=== PATIENT | male | born 1975 | race Caucasian/White ===

== ENCOUNTER → 2017-02-17 | Outpatient (CLI) | payer BC ==
--- NOTE | 2017-02-17 19:52 | PN ---
Brodie is coming in for a followup regarding his obstructive sleep apnea. I have not seen this patient for almost 2-1/2 to 3 years. He was diagnosed having obstructive sleep apnea back in 2013 and his disease was severe, with an apnea-hypopnea index of 68. Currently he is on CPAP at a pressure of 9 cm of water. He remains compliant. He continues to see good clinical response from CPAP therapy. He is averaging more than 6 hours of sleep per night and he is waking up refreshed and alert during the day. He is using a Quattro air full-face mask. He has gained around 18 pounds. He does not snore while on CPAP therapy and he does not have any other complaints. His health otherwise has been essentially the same; the only significant finding over the past year is his 18-pound weight gain. BP is 123/86, pulse 66, respiration 16, temperature 98.2, saturation 97% on room air. Neck size 17-3/4. Height is 6 feet 0 inches. Weight is 258. GENERAL APPEARANCE: Obese, calm, comfortable. HEENT: Short neck. Mallampati class IV. LUNGS: Clear to auscultation. HEART: Sounds are regular rate and rhythm. Normal S1, S2. ABDOMEN: Soft, nontender. No organomegaly. EXTREMITIES: No clubbing. No cyanosis or clubbing. IMPRESSION: 1. Severe obstructive sleep apnea, apnea-hypopnea index of 68, currently on CPAP at a pressure of 9. 2. Chronic hypersomnia, improved. [place] score is down to 5. 3. Obesity with interval weight gain. Current BMI is 34.9. PLAN: 1. The patient wanted to drop [employer], and I sent a prescription to [facility] for his supplies to be renewed. I ordered a Quattro Air large-sized full-face mask in addition to tubing, ( ) tubing and supplies. 2. Encourage weight loss. 3. Compliancy with CPAP is excellent. Continue the treatment and see me back in a few years' time or when needed.
== END | disposition home or self-care (01) ==
LOC: SLEEP 16:25
PROVIDERS: ATTEND Internal Medicine Critical Care Medicine
DX: G47.33 Obstructive sleep apnea (adult) (pediatric) (principal); G47.13 Recurrent hypersomnia; E66.9 Obesity, unspecified; Z68.34 Body mass index [BMI] 34.0-34.9, adult

== ENCOUNTER → 2017-08-04 | Outpatient (CLI) | payer BC ==
[2017-08-04 08:16] LABS: Basophils # (A) 0.1 k/uL (0-0.2); Basophils % (A) 1 %; CH 33.8; Eosinophils # (A) 0.2 k/uL (0-0.7); Eosinophils % (A) 3 %; HCT 45.6 % (39.0-53.0); HDW 3.13; HGB 16.2 gm/dL (13.0-17.5); Luc # (Auto) 0.17; Luc % (Auto) 3; Lymphocytes # (A) 2.1 k/uL (1.0-4.8); Lymphocytes % (A) 35 %; MCH 32.6 pg (25.0-35.0); MCHC 35.5 g/dL (31.0-37.0); MCV 91.9 fL (80.0-100.0); Mean Platelet Volume 6.6; Monocytes # (A) 0.4 k/uL (0-1.0); Monocytes % (A) 7 %; Neutrophils # (A) 3.2 k/uL (1.3-7.7); Neutrophils % (A) 52 %; RBC 4.96 m/uL (4.30-5.90); RDW 14.5 % (11.5-15.5); WBC 6.2 k/uL (3.8-10.6); WBC (Perox) 6.05
[2017-08-04 08:46] LABS: ALT 76 U/L (21-72); AST 52 U/L (17-59); Alkaline Phosphatase 80 U/L (38-126); Anion Gap 9 mmol/L; Blood Urea Nitrogen 12 mg/dL (9-20); Calcium 9.2 mg/dL (8.4-10.2); Carbon Dioxide 29 mmol/L (22-30); Chloride 101 mmol/L (98-107); Cholesterol 211 mg/dL (<200); Glucose 94 mg/dL (74-99); HDL Cholesterol 37 mg/dL (40-60); Non-African American GFR(MDRD) >60 (>60 ml/min/1.73 sqM); Potassium 4.4 mmol/L (3.5-5.1); Sodium 139 mmol/L (137-145); Total Bilirubin 1.4 mg/dL (0.2-1.3); Total Protein 7.8 g/dL (6.3-8.2)
== END | disposition home or self-care (01) ==
LOC: LABWHC1 07:30
PROVIDERS: ATTEND Internal Medicine
DX: Z00.00 Encounter for general adult medical examination without abnormal findings (principal); E78.5 Hyperlipidemia, unspecified; E87.8 Other disorders of electrolyte and fluid balance, not elsewhere classified; E55.9 Vitamin D deficiency, unspecified; I49.9 Cardiac arrhythmia, unspecified; J32.9 Chronic sinusitis, unspecified
CPT/HCPCS: 36415; 80053; 80061; 82306; 85025

== ENCOUNTER → 2017-12-12 | Outpatient (CLI) | payer BC ==
[2017-12-12 10:15] LABS: Albumin 4.5 g/dL (3.5-5.0); Bilirubin, Delta 0.2 mg/dL (0.0-0.2); Bilirubin,Unconjugated 0.9 mg/dL (0.0-1.1); Total Bilirubin 1.1 mg/dL (0.2-1.3); Total Protein 7.5 g/dL (6.3-8.2)
== END | disposition home or self-care (01) ==
LOC: LABWHC1 09:29
PROVIDERS: ATTEND Internal Medicine
DX: K76.9 Liver disease, unspecified (principal); R74.8 Abnormal levels of other serum enzymes
CPT/HCPCS: 36415; 80076

== ENCOUNTER → 2017-12-17 | Outpatient (CLI) | payer BC ==
[2017-12-17 07:55] LABS: Basophils # (A) 0.1 k/uL (0-0.2); Basophils % (A) 1 %; Eosinophils # (A) 0.2 k/uL (0-0.7); Eosinophils % (A) 4 %; HCT 44.8 % (39.0-53.0); HGB 15.9 gm/dL (13.0-17.5); Lymphocytes % (A) 32 %; MCHC 35.4 g/dL (31.0-37.0); MCV 90.3 fL (80.0-100.0); Mean Platelet Volume 6.4; Monocytes # (A) 0.3 k/uL (0-1.0); Monocytes % (A) 5 %; Neutrophils # (A) 3.5 k/uL (1.3-7.7); Neutrophils % (A) 55 %; Platelet Count 217 k/uL (150-450); RBC 4.97 m/uL (4.30-5.90); RDW 13.4 % (11.5-15.5); WBC 6.3 k/uL (3.8-10.6)
[2017-12-17 08:06] LABS: Anion Gap 11 mmol/L; Blood Urea Nitrogen 12 mg/dL (9-20); Calcium 9.4 mg/dL (8.4-10.2); Carbon Dioxide 28 mmol/L (22-30); Chloride 103 mmol/L (98-107); Cholesterol 220 mg/dL (<200); Glucose 100 mg/dL (74-99); HDL Cholesterol 41 mg/dL (40-60); LDL Cholesterol,Calculated 135 mg/dL (0-99); Potassium 4.3 mmol/L (3.5-5.1); Sodium 142 mmol/L (137-145); Triglycerides 219 mg/dL (<150)
[2017-12-17 09:41] LABS: Erythrocyte Sedimentation Rate 3 mm/hr (0-15)
[2017-12-17 17:06] LABS: Hepatitis A Antibody IgM Non-Reactive (Non-Reactive); Hepatitis B Core IgM Non-Reactive (Non-Reactive)
[2017-12-17 22:27] LABS: DNA Double-Stranded NEGATIVE (NEGATIVE)
== END | disposition home or self-care (01) ==
LOC: LABWHC1 07:22
PROVIDERS: ATTEND Internal Medicine
DX: R16.2 Hepatomegaly with splenomegaly, not elsewhere classified (principal); R74.8 Abnormal levels of other serum enzymes; K75.9 Inflammatory liver disease, unspecified
CPT/HCPCS: 36415; 80048; 80061; 80074; 85025; 85652; 86038; 86225

== ENCOUNTER 2018-01-07 15:59 | Outpatient (CLI) | payer BC ==
[2018-01-07 17:05] LABS: Basophils % (A) 1 %; Eosinophils # (A) 0.1 k/uL (0-0.7); Eosinophils % (A) 1 %; HCT 44.8 % (39.0-53.0); Lymphocytes # (A) 1.9 k/uL (1.0-4.8); Lymphocytes % (A) 44 %; MCH 31.1 pg (25.0-35.0); MCHC 33.4 g/dL (31.0-37.0); MCV 93.1 fL (80.0-100.0); Mean Platelet Volume 6.4; Monocytes # (A) 0.4 k/uL (0-1.0); Monocytes % (A) 10 %; Neutrophils # (A) 1.7 k/uL (1.3-7.7); Neutrophils % (A) 40 %; Platelet Count 170 k/uL (150-450); RBC 4.81 m/uL (4.30-5.90); RDW 13.2 % (11.5-15.5); WBC 4.3 k/uL (3.8-10.6)
== END 2018-01-07 16:35 | disposition home or self-care (01) ==
LOC: LABWHC1 15:59 → PEDOP 16:35
PROVIDERS: ATTEND Internal Medicine
DX: R50.9 Fever, unspecified (principal); B34.9 Viral infection, unspecified
CPT/HCPCS: 36415; 85025; 87502; 99212

== ENCOUNTER → 2018-08-05 | Outpatient (CLI) | payer BC ==
[2018-08-05 07:50] LABS: Basophils % (A) 1 %; Eosinophils # (A) 0.2 k/uL (0-0.7); Eosinophils % (A) 4 %; HCT 45.2 % (39.0-53.0); HGB 15.6 gm/dL (13.0-17.5); Lymphocytes # (A) 1.8 k/uL (1.0-4.8); Lymphocytes % (A) 34 %; MCH 31.8 pg (25.0-35.0); MCHC 34.5 g/dL (31.0-37.0); MCV 92.1 fL (80.0-100.0); Mean Platelet Volume 6.1; Monocytes # (A) 0.3 k/uL (0-1.0); Monocytes % (A) 6 %; Neutrophils # (A) 2.8 k/uL (1.3-7.7); Neutrophils % (A) 54 %; Platelet Count 211 k/uL (150-450); RBC 4.91 m/uL (4.30-5.90); RDW 13.7 % (11.5-15.5); WBC 5.2 k/uL (3.8-10.6)
[2018-08-05 09:37] LABS: ALT 68 U/L (21-72); AST 48 U/L (17-59); Albumin 4.4 g/dL (3.5-5.0); Alkaline Phosphatase 77 U/L (38-126); Anion Gap 10 mmol/L; Blood Urea Nitrogen 11 mg/dL (9-20); Calcium 9.2 mg/dL (8.4-10.2); Carbon Dioxide 25 mmol/L (22-30); Chloride 106 mmol/L (98-107); Creatine Kinase 451 U/L (55-170); GGT 75 U/L (15-73); Glucose 104 mg/dL (74-99); Potassium 4.2 mmol/L (3.5-5.1); Sodium 141 mmol/L (137-145); Total Bilirubin 1.4 mg/dL (0.2-1.3); Total Protein 7.6 g/dL (6.3-8.2)
[2018-08-05 09:47] LABS: Erythrocyte Sedimentation Rate 6 mm/hr (0-15)
[2018-08-05 09:55] LABS: C Reactive Protein <5.0 mg/L (<10.0)
[2018-08-05 11:09] LABS: Cholesterol 206 mg/dL (<200); HDL Cholesterol 31 mg/dL (40-60); LDL Cholesterol,Calculated 144 mg/dL (0-99); Triglycerides 153 mg/dL (<150)
== END | disposition home or self-care (01) ==
LOC: LABWHC1 07:25
PROVIDERS: ATTEND Internal Medicine
DX: E78.5 Hyperlipidemia, unspecified (principal); K75.9 Inflammatory liver disease, unspecified; I10 Essential (primary) hypertension; E55.9 Vitamin D deficiency, unspecified; K75.81 Nonalcoholic steatohepatitis (NASH)
CPT/HCPCS: 36415; 80053; 80061; 82306; 82550; 82977; 84443; 85025; 85652; 86140

== ENCOUNTER → 2018-08-17 | Outpatient (CLI) | payer BC ==
--- NOTE | 2018-08-17 19:32 | SFUN ---
SLEEP CENTER FOLLOW UP NOTE DATE OF SERVICE: 08/17/2018. HISTORY: Brodie is a 43-year-old male patient with known history of obstructive sleep apnea. He is coming in for an annual check. His last evaluation was in January of 2017. The patient is still on a CPAP pressure of 9 cm of water. On today's evaluation he is wondering whether he can increase the pressure slightly as he has been told by his that he is snoring at nighttime. He is averaging around 7 hours of CPAP use per night. He has a Resmet S9 series and his treatment has been essentially successful. He is waking up refreshed and alert during the day. Weight has been stable. His current Ashburn score is at 3. His baseline apnea-hypopnea index was 68 at the time of initial diagnosis. He has no specific complaints otherwise for now, and the patient has been been well treated with the exception of snoring. No nighttime shortness of breath. No palpitations. No heartburn. No hypersomnia or sleepiness during the day and the patient is to successfully treated. Ashburn score is a 3. PHYSICAL EXAMINATION: BP is 128/83, pulse 61, respirations 16, saturation 94% on room air. Weight is 259. GENERAL APPEARANCE: Calm comfortable. HEAD: Atraumatic, normocephalic. NECK: Supple. There is no JVD. No goiter or neck mass. LUNGS: Clear to auscultation. HEART: Sounds regular rhythm. Normal S1, S2. No S3, S4. No murmurs. ABDOMEN: Soft, nontender. EXTREMITIES: No edema. No cyanosis or clubbing. NEUROLOGIC: Alert and oriented x3. No focal neurological deficits. IMPRESSION: 1. Severe obstructive sleep apnea. Apnea hypopnea index of 68, currently on CPAP pressure of 9. 2. Hypersomnia, recovered. Ashburn score is 3. 3. Obesity with a stable body weight. 4. Snoring. PLAN: 1. Increase the CPAP pressure up to 10. This is an arbitrary change because of his snoring. 2. I fitted this patient to an AirFit medium size mask and he preferred this mask over the Quattro he has used in the past. 3. Encouraged weight loss. 4. See me back in a year's time, earlier if needed. His treatment is successful. Arbitrary CPAP pressure increased to eliminate his snoring. MMODL / IJN: [id number] /
== END | disposition home or self-care (01) ==
LOC: SLEEP 16:42
PROVIDERS: ATTEND Internal Medicine Critical Care Medicine
DX: G47.33 Obstructive sleep apnea (adult) (pediatric) (principal); E66.9 Obesity, unspecified; Z99.89 Dependence on other enabling machines and devices

== ENCOUNTER → 2018-12-14 | Outpatient (CLI) | payer BC ==
[2018-12-14 11:15] LABS: LDL Cholesterol,Calculated 125.4 mg/dL (0.0-131.0); VLDL Calculation 26.6 mg/dL (5.00-40.00)
== END | disposition home or self-care (01) ==
LOC: LABWHC1 06:52
PROVIDERS: ATTEND Internal Medicine
DX: E78.5 Hyperlipidemia, unspecified (principal); R74.8 Abnormal levels of other serum enzymes
CPT/HCPCS: 36415; 80061; 82550; 84450; 84460

== ENCOUNTER → 2019-01-25 | Outpatient (CLI) | payer BC ==
--- NOTE | 2019-01-25 18:35 | PN ---
PROGRESS NOTE Brodie is a 43-year-old male patient who is coming in for a compliancy check as the patient has obtained a new CPAP unit. The patient has obstructive sleep apnea and his disease was severe with an AHI of 68 at baseline. The patient was using an older generation ResMed S9 series. Currently the patient has been upgraded to a ResMed air sense unit which is also set, however set at a pressure of 10 cm of water. On today's evaluation, he is very happy with the treatment. His snoring is completely eliminated. He is waking up much more refreshed and alert and likes the new machine knowing that his clinical response improved considerably. He is not having any major sleepiness during the day. I checked the compliance data. The patient has been averaging around 6.7 hours of CPAP use per night. His use for more than 4 hours is 29 out of 30. Leak is 12 L/minute. AHI is down to 2.6, and he is using an AirFit F20 large size full-face mask. His weight was 259, is currently down to 251. He has absolutely no complaints. PHYSICAL EXAMINATION: BP is 124/75. Pulse 72, respirations 16, temperature 98.7, saturation 94% on room air. Weight is 251. Belmond score of 5. General appearance is calm and comfortable. Head is atraumatic, normocephalic. NECK: Supple. There is no JVD. No goiter or neck masses. LUNGS: Clear to auscultation. HEART: Sounds regular rate and rhythm. Normal S1, S2. No S3. No murmurs. ABDOMEN: Soft, nontender. No organomegaly. EXTREMITIES: No edema. No cyanosis or clubbing. Neurologically: He is alert and oriented x3. There is no focal neurological deficits. IMPRESSION: 1. Severe obstructive sleep apnea with an AHI of 68, currently on CPAP with a pressure of 10. 2. Hypersomnia, recovered. 3. Obesity with interval weight loss. 4. Snoring recovered. PLAN: 1. Continue CPAP with a pressure of 10. 2. Compliance data was checked. The patient is using his CPAP without any major difficulty. Treatment is successful. Compliance has been demonstrated and insurance guidelines have been met. We will continue treatment. Keep an AirFit large size full-face mask. 3. We will follow. MMODL / IJN: [id number] /
== END ==
LOC: SLEEP 15:52
PROVIDERS: ATTEND Internal Medicine Critical Care Medicine
DX: G47.33 Obstructive sleep apnea (adult) (pediatric) (principal); E66.9 Obesity, unspecified; Z99.89 Dependence on other enabling machines and devices

== ENCOUNTER → 2019-04-28 | Outpatient (CLI) | payer BC ==
--- NOTE | 2019-04-28 11:25 | CT ---
CT CHEST FOR PULMONARY EMBOLISM. EXAMINATION TYPE: CT angio chest DATE OF EXAM: 04/28/2019 INDICATION: Aortic aneurysm CT DLP: 611.0 mGycm, Automated exposure control for dose reduction was used. CONTRAST: Patient injected with 100 mL of Isovue 370. COMPARISON: 07/21/2014 TECHNIQUE: CT of the chest is performed on a spiral scan at 2 mm thick sections. Study is performed with intravenous contrast timed for evaluation for pulmonary embolism. This will limit additional po rtions of the evaluation. 3-D MIP images reconstructed by the technologist are reviewed on the compu ter in the coronal and sagittal planes. FINDINGS: No persistent filling defects are evident to suggest an acute pulmonary embolism. No mediastinal or hilar adenopathy enlarged by CT criteria is evident. The ascending aorta diameter at the level of the main pulmonary artery is 4.7 cm. The main pulmonary artery diameter at the bifur cation is 3.2 cm. Coronary artery calcification is noted. No right heart strain is noted. Lung windows are clear. Limited CT section through the upper abdomen are unremarkable. IMPRESSIONS: 1. Ascending thoracic aortic aneurysm measuring 4.7 cm. This is increased from 4.0 cm 07/21/2014.
== END | disposition home or self-care (01) ==
LOC: RADCTMAIN 06:50
PROVIDERS: ATTEND Internal Medicine Clinical Cardiac Electrophysiology
DX: I71.2 Thoracic aortic aneurysm, without rupture (principal)
CPT/HCPCS: 71275; Q9967

== ENCOUNTER → 2019-12-03 | Outpatient (CLI) | payer BC ==
[2019-12-03 10:00] LABS: Basophils # (A) 0.1 k/uL (0-0.2); Basophils % (A) 1 %; Eosinophils # (A) 0.2 k/uL (0-0.7); Eosinophils % (A) 4 %; HCT 44.9 % (39.0-53.0); HGB 15.9 gm/dL (13.0-17.5); Lymphocytes # (A) 2.2 k/uL (1.0-4.8); Lymphocytes % (A) 39 %; MCH 32.1 pg (25.0-35.0); MCHC 35.4 g/dL (31.0-37.0); MCV 90.7 fL (80.0-100.0); Mean Platelet Volume 6.8; Monocytes # (A) 0.3 k/uL (0-1.0); Monocytes % (A) 5 %; Neutrophils # (A) 2.7 k/uL (1.3-7.7); Neutrophils % (A) 48 %; Platelet Count 232 k/uL (150-450); RBC 4.95 m/uL (4.30-5.90); RDW 12.9 % (11.5-15.5); WBC 5.5 k/uL (3.8-10.6)
[2019-12-03 13:48] LABS: Erythrocyte Sedimentation Rate 2 mm/hr (0-15)
[2019-12-03 17:58] LABS: ALT 38 U/L (10-49); AST 34 U/L (14-35); African American GFR (CKD) 119.1 (60.0-200.0); Albumin/Globulin Ratio 2.04 (1.60-3.17); Alkaline Phosphatase 64 U/L (41-126); BUN/Creat Ratio 11.11 Ratio (12.00-20.00); C Reactive Protein <0.4 mg/dL (0.0-0.8); Calcium 9.4 mg/dL (8.7-10.3); Carbon Dioxide 27.4 mmol/L (21.6-31.8); Chloride 107 mmol/L (96-109); Creatine Kinase 466 U/L (35-257); Globulin 2.4 g/dL (1.6-3.3); Glucose 102 mg/dL (70-110); Non-African American GFR(CKD) 102.8 (60.0-200.0); Potassium 4.3 mmol/L (3.5-5.5); Sodium 141 mmol/L (135-145); Total Bilirubin 1.1 mg/dL (0.3-1.2); Total Protein 7.3 g/dL (6.2-8.2)
[2019-12-03 17:59] LABS: Chol/HDL Ratio 4.39; Cholesterol 158 mg/dL (0-200); LDL Cholesterol,Calculated 103.6 mg/dL (0.0-131.0)
== END | disposition home or self-care (01) ==
LOC: LABWHC1 09:06
PROVIDERS: ATTEND Internal Medicine
DX: I10 Essential (primary) hypertension (principal); N40.0 Benign prostatic hyperplasia without lower urinary tract symptoms; I71.2 Thoracic aortic aneurysm, without rupture; I49.9 Cardiac arrhythmia, unspecified; E78.5 Hyperlipidemia, unspecified; E55.9 Vitamin D deficiency, unspecified
CPT/HCPCS: 36415; 80053; 80061; 82306; 82550; 84153; 84439; 84443; 85025; 85652; 86140

== ENCOUNTER → 2020-12-19 | Outpatient (CLI) | payer BC ==
--- NOTE | 2020-12-19 12:43 | CT ---
EXAMINATION TYPE: CT iac wo con DATE OF EXAM: 12/19/2020 COMPARISON: NONE HISTORY: hearing loss. Left sided cholesteatoma per order. CT DLP: 150 mGycm. Automated Exposure Control for Dose Reduction was Utilized. TECHNIQUE: CT scan of internal auditory canal is performed without contrast, thin cut axial images ar e obtained, coronal reformatted images are also reviewed. FINDINGS: The external auditory canals are patent bilaterally. Mastoid air cells show patchy left-sided opacification. The middle ear ossicles are symmetric and wi thin normal limits. There is small degree of surrounding soft tissue density along the left superior aspect of the middle ear ossicles axial image 34 and coronal image 83. The scutum is preserved on t he right. Scutum is blunted on the left. The cochlea and the semicircular canals are symmetric and unremarkable. Satisfactory bony overgrowth over the superior semicircular canal. Vestibular aqueduct and internal carotid canal appear unremark able. Temporomandibular joints are maintained bilaterally. Visualized paranasal sinuses [id number] m ucosal thickening anterior sphenoid sinuses left greater than right. There is moderate to severe muco ramin thickening in the ethmoid sinuses bilaterally greatest in the posterior aspects. There are small mucous retention cysts and/or polyps in the inferior maxillary sinuses with mild mucosal thickening. Visualized portion brain parenchyma is felt within normal limits. IMPRESSION: Left-sided mastoiditis is present. I suspect small degree of chronic left middle ear inf ection though acute component is not entirely excluded.
== END | disposition home or self-care (01) ==
LOC: RADCTMAIN 11:45
PROVIDERS: ATTEND Otolaryngology Otology & Neurotology
DX: H70.92 Unspecified mastoiditis, left ear (principal)
CPT/HCPCS: 70480

== ENCOUNTER → 2021-10-29 | Outpatient (CLI) | payer BC ==
--- NOTE | 2021-10-29 18:27 | XR ---
Left RIBS HISTORY: Pain, fracture, cough 4 views of left RIBS There is no pneumothorax or pleural effusion. No evident displaced rib fracture. Arthropathy is noted at the acromioclavicular joint. IMPRESSION: No acute abnormality. Bone scan could be performed as indicated to assess for occult frac ture.
== END | disposition home or self-care (01) ==
LOC: RADXRMAIN 17:15
PROVIDERS: ATTEND Internal Medicine
DX: R07.81 Pleurodynia (principal); R05.9 Cough, unspecified

== ENCOUNTER → 2021-12-14 | Outpatient (CLI) | payer BC ==
[2021-12-14 12:01] LABS: Basophils # (A) 0.04 X 10*3/uL (0.00-0.10); Basophils % (A) 0.7 %; Eosinophils % (A) 3.4 %; HCT 44.6 % (39.6-50.0); HGB 15.3 g/dL (13.0-17.0); Lymphocytes # (A) 2.05 X 10*3/uL (0.90-5.00); Lymphocytes % (A) 34.9 %; MCH 30.4 pg (27.0-32.0); MCHC 34.3 g/dL (32.0-37.0); MCV 88.5 fL (80.0-97.0); Monocytes # (A) 0.45 X 10*3/uL (0.20-1.00); Monocytes % (A) 7.7 %; Neutrophils # (A) 3.12 X 10*3/uL (1.80-7.70); Platelet Count 217 X 10*3/uL (140-440); RBC 5.04 X 10*6/uL (4.40-5.60); WBC 5.88 X 10*3/uL (4.50-10.00)
[2021-12-14 12:33] LABS: Erythrocyte Sedimentation Rate 5 mm/Hr (0-15)
[2021-12-14 14:18] LABS: ALT 52 U/L (10-49); AST 50 U/L (14-35); African American GFR (CKD) 117.5 (60.0-200.0); Albumin 4.9 g/dL (3.8-4.9); Albumin/Globulin Ratio 1.75 (1.60-3.17); Alkaline Phosphatase 56 U/L (41-126); BUN/Creat Ratio 14.44 Ratio (12.00-20.00); Calcium 9.3 mg/dL (8.7-10.3); Carbon Dioxide 21.6 mmol/L (20.0-27.5); Chloride 102 mmol/L (96-109); Creatine Kinase 562 U/L (35-257); Globulin 2.8 g/dL (1.6-3.3); Glucose 94 mg/dL (70-110); Magnesium 2.2 mg/dL (1.5-2.4); Non-African American GFR(CKD) 101.4 (60.0-200.0); Potassium 3.6 mmol/L (3.5-5.5); Sodium 137 mmol/L (135-145); Total Protein 7.7 g/dL (6.2-8.2); Uric Acid 5.7 mg/dL (3.7-8.7)
[2021-12-14 14:40] LABS: Chol/HDL Ratio 4.38 Ratio; LDL Cholesterol,Calculated 99.6 mg/dL (0.0-131.0)
[2021-12-14 14:47] LABS: C Reactive Protein <0.30 mg/dL (0.00-0.80)
== END | disposition home or self-care (01) ==
LOC: LABWHC1 08:03
PROVIDERS: ATTEND Internal Medicine
DX: Z00.00 Encounter for general adult medical examination without abnormal findings (principal); D64.9 Anemia, unspecified; N40.0 Benign prostatic hyperplasia without lower urinary tract symptoms; I10 Essential (primary) hypertension; E78.5 Hyperlipidemia, unspecified; E03.9 Hypothyroidism, unspecified; E55.9 Vitamin D deficiency, unspecified; E66.9 Obesity, unspecified
CPT/HCPCS: 36415; 80053; 80061; 82306; 82550; 83735; 84100; 84153; 84443; 84550; 85025; 85652; 86140

== ENCOUNTER → 2022-01-08 | Outpatient (CLI) | payer BC | END | disposition home or self-care (01) | LOC: LABWHC1 11:13 | PROVIDERS: ATTEND Internal Medicine | DX: E29.1 Testicular hypofunction (principal) | CPT/HCPCS: 36415; 84403 ==

== ENCOUNTER → 2022-01-31 | Day surgery (SDC) | payer BC ==
[2022-01-29 12:22] VITALS: BMI 34.2
[~2022-01-31] MED LIST: IV FLUID CONTINUATION 1,000 ML IV ONE; LACTATED RINGERS 1,000 ML IV SCH; LIDOCAINE 1% (10MG/ML) FOR IV START INTRADERMA ONE; PROPOFOL 10 MG/ML 20 ML VIAL IV ONE
[2022-01-31 07:27] VITALS: TEMP 96.4
--- NOTE | 2022-01-31 08:30 | P.OP ---
Date of Procedure: 01/31/22 Preoperative Diagnosis: Rectal bleeding Postoperative Diagnosis: Cecal polyp Ascending colon polyp Descending colon polyp Sigmoid polyp Internal hemorrhoids Procedure(s) Performed: Colonoscopy with hot snare polypectomy and clip placement Anesthesia: MAC Surgeon: Donnie Shah Pathology: none sent (Polyps of the cecum, ascending colon, descending colon, sigmoid) Condition: stable Disposition: same day Indications for Procedure: 46-year-old male presented to the surgical clinic with complaints of rectal bleeding and hemorrhoidal pain. He was started on Anusol suppositories and plan for colonoscopy for further evaluation of bleeding. Risks, benefits and alternatives were provided. Operative Findings: Multiple polyps, as above Description of Procedure: The patient was brought to the endoscopy suite and placed in left lateral decubitus position and adequate sedation was achieved using conscious sedation. A digital rectal exam was performed and internal hemorrhoids palpated. An endoscope was then placed in the rectum and advanced to the cecum as identified by landmarks including the appendiceal orifice and ileocecal valve. The prep was good. The colonoscope was then slowly withdrawn, examining for any mucosal N O'Priyank's. The cecum, ascending, transverse, descending and sigmoid colon were visualized adequately. Multiple polyps were encountered. The first was noted in the cecum. This was removed with forceps polypectomy. An additional polyp was noted in the ascending colon. This was removed with hot snare polypectomy. Hemostasis was maintained. An additional larger polyp was noted in the transverse colon and this was also removed with hot snare polypectomy. Hemostasis was maintained. A polyp was noted on the descending colon. This was removed with hot snare polypectomy. On further evaluation, continued oozing was noted from the site. Therefore, clip was placed over the site. Hemostasis was noted to be maintained. Additional polyp was noted in the sigmoid colon. This was removed with hot snare polypectomy. Hemostasis was maintained. Retroflexion was performed in the rectum and internal hemorrhoids were visible. Excess air was removed, the colonoscope withdrawn and the procedure terminated. The patient was then transferred to the recovery in stable condition. Repeat colonoscopy should be performed in 3 years.
[2022-01-31 08:48] VITALS: BP 135/86; PULSE 72; RESP 16
== END | disposition home or self-care (01) ==
LOC: ORWHC2ENDO 07:01
PROVIDERS: ATTEND Surgery
DX: D12.2 Benign neoplasm of ascending colon (principal); D12.0 Benign neoplasm of cecum; D12.4 Benign neoplasm of descending colon; D12.5 Benign neoplasm of sigmoid colon; K64.8 Other hemorrhoids; I10 Essential (primary) hypertension; E78.5 Hyperlipidemia, unspecified; G47.30 Sleep apnea, unspecified; Z98.890 Other specified postprocedural states; Z80.1 Family history of malignant neoplasm of trachea, bronchus and lung; Z80.8 Family history of malignant neoplasm of other organs or systems; Z83.3 Family history of diabetes mellitus; Z82.49 Family history of ischemic heart disease and other diseases of the circulatory system; Z79.899 Other long term (current) drug therapy
CPT/HCPCS: 88305; 45380; 45385; J2704; 45382

== ENCOUNTER → 2023-05-02 | Outpatient (CLI) | payer BC ==
[2023-05-03 08:09] LABS: Basophils # (A) 0.08 X 10*3/uL (0.00-0.10); Basophils % (A) 1.3 %; Eosinophils # (A) 0.22 X 10*3/uL (0.04-0.35); Eosinophils % (A) 3.5 %; HCT 44.8 % (39.6-50.0); HGB 15.6 d/dL (12.0-15.0); Lymphocytes # (A) 2.44 X 10*3/uL (0.90-5.00); MCH 31.6 pg (27.0-32.0); MCHC 34.8 d/dL (32.0-37.0); MCV 90.9 FL (80.0-97.0); Mean Platelet Volume 9.3 FL (9.5-12.2); Monocytes % (A) 6.4 %; NRBC Per 100 WBC 0 X 10*3/uL (0.00-0.01); Neutrophils # (A) 3.09 X 10*3/uL (1.80-7.70); Neutrophils % (A) 49.5 %; Platelet Count 216 X 10*3/uL (140-440); RBC 4.93 X 10*6/uL (4.40-5.60); RDW 13.2 % (11.5-14.5); WBC 6.25 X 10*3/uL (4.50-10.00)
[2023-05-03 08:47] LABS: ALT 40 U/L (10-49); AST 34 U/L (14-35); Albumin 4.8 d/dL (3.8-4.9); Albumin/Globulin Ratio 1.85 Ratio (1.60-3.17); Alkaline Phosphatase 65 U/L (41-126); BUN/Creat Ratio 10.78 Ratio (12.00-20.00); Blood Urea Nitrogen 9.7 mg/dL (9.0-27.0); C Reactive Protein <0.30 mg/dL (0.00-0.80); Calcium 9.5 mg/dL (8.7-10.3); Carbon Dioxide 26.3 mmol/L (21.6-31.8); Chloride 102 mmol/L (96-109); Chol/HDL Ratio 4.93 Ratio; Creatine Kinase 316 U/L (35-257); GGT 57 U/L (0-73); Globulin 2.6 d/dL (1.6-3.3); Glucose 99 mg/dL (70-110); LDL Cholesterol,Calculated 108.9 mg/dL (0.0-131.0); Phosphorus 3.3 mg/dL (2.4-5.1); Potassium 4.1 mmol/L (3.5-5.5); Sodium 139 mmol/L (135-145); Total Bilirubin 1.1 mg/dL (0.3-1.2); Total Protein 7.4 d/dL (6.2-8.2); Uric Acid 5.9 mg/dL (3.7-8.7)
[2023-05-03 15:43] LABS: Erythrocyte Sedimentation Rate 3 mm/Hr (0-15)
== END | disposition home or self-care (01) ==
LOC: LABWHC1 08:39
PROVIDERS: ATTEND Internal Medicine
DX: Z00.00 Encounter for general adult medical examination without abnormal findings (principal); D64.9 Anemia, unspecified; N40.0 Benign prostatic hyperplasia without lower urinary tract symptoms; I10 Essential (primary) hypertension; E87.8 Other disorders of electrolyte and fluid balance, not elsewhere classified; K75.9 Inflammatory liver disease, unspecified; E78.5 Hyperlipidemia, unspecified; E55.9 Vitamin D deficiency, unspecified
CPT/HCPCS: 36415; 80053; 80061; 82306; 82550; 82977; 83735; 84100; 84153; 84443; 84550; 85025; 85652; 86140

== ENCOUNTER → 2024-09-03 | Outpatient (CLI) | payer BC ==
[2024-09-03 12:49] LABS: Creatinine,Urine Random 118.6 mg/dL; Protein/Creatinine Ratio,Urine 0.067
[2024-09-03 15:13] LABS: Basophils # (A) 0.06 X 10*3/uL (0.00-0.10); Eosinophils # (A) 0.22 X 10*3/uL (0.04-0.35); Eosinophils % (A) 3.8 %; HCT 41.8 % (39.6-50.0); HGB 14.9 g/dL (13.0-17.0); Lymphocytes # (A) 1.83 X 10*3/uL (0.90-5.00); Lymphocytes % (A) 31.8 %; MCH 31.4 pg (27.0-32.0); MCHC 35.6 g/dL (32.0-37.0); Mean Platelet Volume 8.8 FL (9.5-12.2); Monocytes # (A) 0.46 X 10*3/uL (0.20-1.00); NRBC Per 100 WBC 0 X 10*3/uL (0.00-0.01); Neutrophils # (A) 3.16 X 10*3/uL (1.80-7.70); Neutrophils % (A) 54.9 %; Platelet Count 202 X 10*3/uL (140-440); RBC 4.75 X 10*6/uL (4.40-5.60); RDW 13.5 % (11.5-14.5); WBC 5.76 X 10*3/uL (4.50-10.00)
[2024-09-03 15:16] LABS: % Iron Saturation 28.38 (15.00-50.00); ALT 46 U/L (10-49); AST 39 U/L (14-35); Albumin 4.4 g/dL (3.8-4.9); Albumin/Globulin Ratio 1.76 Ratio (1.60-3.17); Alkaline Phosphatase 69 U/L (41-126); BUN/Creat Ratio 11.75 Ratio (12.00-20.00); Blood Urea Nitrogen 9.4 mg/dL (9.0-27.0); C Reactive Protein <0.30 mg/dL (0.00-0.80); Calcium 9.1 mg/dL (8.7-10.3); Carbon Dioxide 27.3 mmol/L (21.6-31.8); Chloride 109 mmol/L (96-109); Globulin 2.5 g/dL (1.6-3.3); Glucose 106 mg/dL (70-110); Iron 105 UG/DL (65-175); LDL Cholesterol,Calculated 132.1 mg/dL (0.0-131.0); Magnesium 1.9 mg/dL (1.5-2.4); Phosphorus 3.1 mg/dL (2.4-5.1); Potassium 4.3 mmol/L (3.5-5.5); Prostate Specific Antigen 1.03 ng/mL (0.000-3.500); Sodium 148 mmol/L (135-145); Total Bilirubin 0.9 mg/dL (0.3-1.2); Total Iron Binding Capacity 370 UG/DL (228-460); Total Protein 6.9 g/dL (6.2-8.2); Uric Acid 6.5 mg/dL (3.7-8.7)
[2024-09-03 15:30] LABS: Erythrocyte Sedimentation Rate 1 mm/Hr (0-15)
[2024-09-03 23:29] LABS: Microalbumin Creatinine Ratio <10 mg/g Cr (0-30)
== END | disposition home or self-care (01) ==
LOC: LABWHC1 07:59
PROVIDERS: ATTEND Internal Medicine
CPT/HCPCS: 36415; 80053; 80061; 82043; 82306; 82570; 82728; 83540; 83550; 83735; 83970; 84100; 84153; 84156; 84443; 84550; 85025; 85652; 86140